=== PATIENT | female | born 1935 | race Caucasian/White ===

== ENCOUNTER 2019-12-26 00:49 | Day surgery (SDC) | payer OTHER, SELFPAY ==
[2019-12-01 12:51] VITALS: BP 154/75; PULSE 60; RESP 18; TEMP 36.6; O2SAT 97; BMI 27.3
[2019-12-26] VITALS (16 sets, daily range): BP systolic 124–193; BP diastolic 46–73; PULSE 62–81; RESP 16–20; TEMP 34.7–37; O2SAT 95–100; BMI 27.1
--- NOTE | ~2019-12-26 | XR_ITS ---
EXAMINATION: XR knee RT 2V DATE: 12/26/2019 13:08 INDICATION: Right knee arthroplasty. Postop. TECHNIQUE: 2 views of right knee were obtained. COMPARISON: Right knee radiographs 09/01/2019 FINDINGS: There is a total right knee arthroplasty in near-anatomic alignment with patellar resurfaci ng. No fracture. There is gas in the knee joint and soft tissues, consistent with recent surgery. IMPRESSION: 1. Total right knee arthroplasty in near-anatomic alignment. Reviewed, dictated and finalized at location A. TRONIC MACHINE OPERATOR
[2019-12-26] MEDS: LACTATED RINGERS 1,000 ML 30 ML IV CONT ×2 (08:25→12:53)
--- NOTE | 2019-12-26 09:05 | P.PNAN_ITS ---
Anes - Initial Pre Proc Eval Procedure: Operation Date: 12/26/19 10:00 Proposed Procedures p Right Total Knee Arthroplasty - Jimmy Oropeza MD Date/Time: 12/26/19 09:05 Surgeon: Jimmy Oropeza MD Pre Op Diagnosis: OA Right Knee Patient Data Age: 84 Gender: F Height: 1.5 m Weight: 60.8 kg Last Vital Signs Temp 36.6 C 12/26/19 08:39 Pulse 62 12/26/19 08:39 Resp 16 12/26/19 08:39 BP 158/62 H 12/26/19 08:39 Pulse Ox 100 12/26/19 08:39 Allergies Allergy/AdvReac Type Severity Reaction Status Date / Time No Known Allergies Allergy Unverified 12/26/19 08:00 Home Medications Medication Instructions Recorded Confirmed Type aspirin 81 mg PO DAILY 12/01/19 12/26/19 History atorvastatin 80 mg PO HS 12/01/19 12/26/19 History carvedilol 3.125 mg PO BID 12/01/19 12/26/19 History losartan-hydrochlorothiazide 1 tablet PO DAILY 12/01/19 12/26/19 History vitamin B complex [B 1 tablet PO DAILY 12/01/19 12/26/19 History Complex-Vitamin B12] Other Studies: echo 09/2019 - ef 65%, nl lvsf, impaired lv relaxation - estimated PA pressure 25 mmHg stress test 10/2019 - normal, no evidence of ischemia or scar, ef 68% Patient hx anesthesia problems: none Family hx anesthesia problems: none [facility] Past Medical History Medical History (Updated 12/26/19 @ 09:12 by Andrae James MD) Arthritis CAD (coronary artery disease) LAD stent Hypercholesterolemia Hypertension ICD (implantable cardioverter-defibrillator) in place Ischemic cardiomyopathy LBBB (left bundle branch block) Mitral regurgitation Pacemaker . BATTERY CHANGE EVER 4 YRS. SEES Surgical History Surgical History (Updated 12/26/19 @ 09:12 by Andrae James MD) History of cholecystectomy History of coronary artery stent placement Status post biventricular cardiac pacemaker insertion Social History Social History Smoking status: Never smoker Second hand tobacco smoke exposure: No Alcohol intake: never Gender identity (if verbalized by the patient): Female Anes - Eval Final PreProcedure Day of Procedure 12/26/19 09:05 Patient weight: overweight Heart: regular rate and rhythm Lungs: clear to auscultation and normal air movement Airway: Mallampati scale class II Neurological: alert and oriented Last oral intake: >/= 8 hours ASA classification: III Emergent: no Anesthetic plan: proceed Anesthesia type and monitoring: general LMA Informed Consent: The patient's anesthetic plan and its attendant risks and benefits were discussed with the patient/family/POA. Questions were solicited and answers provided to the satisfaction of the patient/family/POA.
--- NOTE | 2019-12-26 09:24 | WPDHPUPDATE1 ---
History and Physical Update Update Date/Time: 12/26/19 09:24 History and Physical has been reviewed, including an updated exam of the patient. There are NO changes in the patient's condition. Risks, benefits, and alternatives have been discussed and questions answered. Patient agrees to proceed with procedure.
--- NOTE | 2019-12-26 09:34 | WPDANESPNB ---
Anes - Peripheral Nerve Block Date/Time: 12/26/19 09:34 I have discussed with the patient/family/POA the placement of a peripheral nerve block for post-operative pain management, including associated risks, benefits, complications, and side effects. Alternative methods of post-operative analgesia were detailed. Questions were solicited and answers provided to the satisfaction of the patient/family/POA. Time-Out: A pre-procedural Time-Out was completed immediately before starting the procedure and confirmed: Patient Identification, Site, Procedure, Patient Position and the Availability of Requisite Equipment. Clinical Indications: Acute post-operative pain management requested by the operative surgeon. Nerve Block Insertion Note Anes-nerve block: adductor canal right Patient position: supine Skin prep: chlorhexidine Needle: 22 gauge, stimulating, insulated echogenic needle. Needle length: 80 mm Technique: ultrasound Technique comment: in plane Injectate: bupivacaine 0.5% with epi 5 mcg/ml (25cc) Observations: tolerated well Complications: none Procedure start time:: 925 Procedure end time:: 930
[2019-12-26] MEDS: ceFAZolin 2 GM/D5W 50 ML 2 GM/50 ML BAG IVPB (10:06)
[2019-12-26] MEDS: GENTAMICIN BONE CEMENT REFOBACIN 1 EACH TOPICAL (11:46)
--- NOTE | 2019-12-26 13:05 | PM.PROC ---
Procedure Note - Detailed Date of procedure: 12/26/19 Pre-op diagnosis: OA Right Knee Post-op diagnosis: same Procedure performed: Total knee arthroplasty Implants: [place] Triathlon knee system, Anderson base plate cemented tibia size 3, Posterior cruciate stabilized cemented femoral component size 3 ,and an 11 mm TS total stabilized polyethylene insert. 32mm polyethylene patella component. 50mm, 12mm diameter tibia stem extension. Anesthesia: GETA and regional (subsartorial nerve block) Surgeon: Jimmy Oropeza MD Estimated blood loss (mL): 200 Drains: No Pathology: none sent Complications: None Condition: stable Disposition: PACU Findings: Severe valgus deformity. Bone quality fair. Required extensive lateral release. Moderate attenuation of the MCL. Minimal distal lateral resection. 4 degrees external rotation. OPERATIVE DETAILS: The patient was given a nerve block preoperatively, and then brought to the operating room. A general anesthetic was administered. The leg was prepped and draped in the usual sterile fashion. The limb was elevated and the tourniquet inflated to 300 mmHg during the exposure and cementation. A longitudinal incision was created along the medial border of the patella and patellar tendon, and a midvastus approach to the knee was performed. No significant medial release was taken. The knee was then flexed. The osteophytes were carefully removed. The intramedullary guide was placed in the femoral canal. The distal femoral resection was then taken with the oscillating saw. The collateral ligaments were carefully protected. The tibia was carefully exposed. The jig was applied, and the proximal tibia was resected according to the preoperative plan. The knee was balanced in extension. Extensive lateral release was required with pie crusting. The anterior cruciate, ligament and meniscal remnants were removed. The posterior cruciate ligament was sacrificed. The patella was measured. Patellar resection was carried out with the oscillating saw. The femur was sized and rotation assessed using a combination of gap balancing, posterior referencing, and the AP axis. The 4 in 1 cutting block, and the box cut guide were used to finish the femoral cuts after equal gaps were assured. The osteophytes were carefully removed from the back of the knee. The knee was copiously irrigated with antibiotic solution periodically throughout the procedure. The spacer block was used to confirm equal flexion and extension gaps. Further releases were performed as needed. The tibia was sized and broached. Central drilling for the short stem was performed. The bony surfaces were prepared for cementing with pulsatile lavage. The real tibia,femur, and patella were cemented. Excess cement was carefully removed. Patellar tracking was carefully assessed. No additional releases were required. The wound was closed with #1 Vicryl suture, #2 Quill suture, 0-Quill suture, and 2-0 Quill suture followed by Steri-Strips. A sterile bulky dressing was applied. Meticulous hemostasis was maintained throughout the procedure. The Aquamantis device was used for additional hemostasis. The pain relieving mixture was injected after the exposure. There were no complications. The patient was extubated and brought to the recovery room in stable condition after the application of sterile dressing with Kevin bandage.
--- NOTE | 2019-12-26 13:58 | SUR.PHASEI ---
1355 FAMILY UPDATED IN THE WAITING ROOM & SENT TO ROOM 322.
[2019-12-26] MEDS: hydrALAZINE HCL 20 MG/ML VIAL 10 MG IV PUSH (14:26)
--- NOTE | 2019-12-26 15:15 | ADMGEN ---
This patient, Cassie Gunn, was admitted to 3 Med Surg Room 322-02. Patient/family oriented to hospital policies and general routines including ID bracelet, bed and alarms, visiting hours, pain management, procedures, bathroom and other care routines, personal items, smoking policy, room service/diet, and visiting hours. Valuables list has been completed. Information on how to activate the Rapid Response Team has been discussed. Patient/Family are encouraged to report perceived risks to care and to ask questions if they do not understand what they are told or what they should do.
[2019-12-26] MEDS: SODIUM CHLORIDE 0.9% IV 1,000 ML 125 ML IV CONT (16:22)
[2019-12-26] MEDS: ASPIRIN 81 MG ENTERIC TABLET PO (18:06)
[2019-12-26] MEDS: MELOXICAM 7.5 MG TABLET PO (18:06)
[2019-12-26] MEDS: FAMOTIDINE 20 MG TABLET PO (20:32)
[2019-12-26] MEDS: ATORVASTATIN 40 MG TABLET 80 MG PO (20:32)
[2019-12-26] MEDS: carvediloL 3.125 MG TABLET PO (20:32)
[2019-12-26] MEDS: DOCUSATE SODIUM 100 MG CAPSULE PO (20:32)
[2019-12-27] VITALS: BP 130/49; PULSE 64; RESP 16; TEMP 36.4; O2SAT 98
[2019-12-27 06:00] VITALS: BP 139/53; PULSE 70; RESP 16; TEMP 36.5; O2SAT 96
[2019-12-27 06:32] LABS: Basophils Percent Auto 0.2 % (0.2-1.2); Hematocrit 38.4 % (37.0-47.0); Hemoglobin 12.7 g/dL (12.0-15.0); Immature Granulocyte Absolute 0.08 K/mm3 (0.00-0.031); Immature Granulocyte Percent A 0.5 % (0-0.5); Lymphocytes Absolute Auto 2.05 K/mm3 (0.9-3.2); Lymphocytes Percent Auto 12.3 % (18.3-44.2); Mean Corpuscular HGB Conc 33.1 g/dl (32-36); Mean Corpuscular Hemoglobin 28.2 pg (26-34); Mean Corpuscular Volume 85.1 fl (80-100); Mean Platelet Volume 12.2 fl (7.4-10.4); Monocytes Absolute Auto 1.9 K/mm3 (0.1-0.6); Monocytes Percent Auto 11.6 % (2.6-8.5); Neutrophils Absolute Auto 12.6 K/mm3 (1.3-6.7); Neutrophils Percent Auto 75.4 % (45.5-73.1); Platelet Count Result 139 k/mm3 (150-375); Red Blood Count 4.51 M/mm3 (4.2-5.4); Red Cell Distribution Width 13.7 % (11.5-14.5); White Blood Count 16.7 K/mm3 (4.5-10.0)
[2019-12-27 06:52] LABS: Blood Urea Nitrogen 18 mg/dL (7-17); Calcium 8.1 mg/dL (8.4-10.2); Carbon Dioxide 24 mmol/L (22-30); Chloride 103 mmol/L (98-107); Estimated Glomerular Filt Rate > 60; Glucose 107 mg/dL (65-105); Potassium 3.5 mmol/L (3.4-5.0); Sodium 135 mmol/L (137-145)
--- NOTE | 2019-12-27 07:41 | PM.IMCN ---
HPI Data of Consult Consult date: 12/27/19 Requesting Physician: Oliver Kimball MD Primary Care Provider: Bartolome Flynn DO Consult Narrative Narrative: Cassie Gunn is a 84 year old female [facility] Past Medical History Medical History (Updated 12/26/19 @ 09:12 by Andrae James MD) Arthritis CAD (coronary artery disease) LAD stent Hypercholesterolemia Hypertension ICD (implantable cardioverter-defibrillator) in place Ischemic cardiomyopathy LBBB (left bundle branch block) Mitral regurgitation Pacemaker . BATTERY CHANGE EVER 4 YRS. SEES Surgical History Surgical History (Updated 12/27/19 @ 07:46 by Joe Kimball MD) History of cholecystectomy History of coronary artery stent placement Hx of fracture of right hip Subcapital hip fx s/p hemiarthroplasty on 10/22/17 Status post biventricular cardiac pacemaker insertion Family History Family History (Updated 12/26/19 @ 15:20 by Saman Griffin RN) Daughter Hypertension Sibling Hypertension Daughter Hypertension Mother Diabetes mellitus Alzheimer's dementia Father Myocardial infarction Social History Social History Smoking status: Never smoker Second hand tobacco smoke exposure: Yes Alcohol intake: never Substance use type: does not use Gender identity (if verbalized by the patient): Female Spiritual care concerns: No Agree to blood products: Yes Meds Home Medications and Allergies Home Medications Medication Instructions Recorded Confirmed Type aspirin 81 mg PO DAILY 12/01/19 12/26/19 History atorvastatin 80 mg PO HS 12/01/19 12/26/19 History carvedilol 3.125 mg PO BID 12/01/19 12/26/19 History losartan-hydrochlorothiazide 1 tablet PO DAILY 12/01/19 12/26/19 History vitamin B complex [B 1 tablet PO DAILY 12/01/19 12/26/19 History Complex-Vitamin B12] Allergies Allergy/AdvReac Type Severity Reaction Status Date / Time No Known Allergies Allergy Unverified 12/26/19 08:00 Vital Signs Vital Signs - 24 hr 12/26/19 08:39 12/26/19 12:53 12/26/19 13:05 Temperature 97.8 F 98.4 F Pulse Rate 62 76 67 Respiratory Rate 16 16 20 Blood Pressure 158/62 H 172/62 H 164/68 H Pulse Oximetry 100 100 100 12/26/19 13:20 12/26/19 13:35 12/26/19 13:50 Temperature Pulse Rate 68 70 68 Respiratory Rate 20 16 18 Blood Pressure 161/68 H 179/65 H 175/68 H Pulse Oximetry 98 95 96 12/26/19 14:05 12/26/19 14:20 12/26/19 14:35 Temperature Pulse Rate 69 69 71 Respiratory Rate 20 20 20 Blood Pressure 179/68 H 193/73 H 154/66 H Pulse Oximetry 97 97 97 12/26/19 14:48 12/26/19 15:06 12/26/19 15:37 Temperature 98.6 F 97.8 F 97.8 F Pulse Rate 69 78 73 Respiratory Rate 20 16 18 Blood Pressure 144/63 H 145/58 H 148/46 H Pulse Oximetry 97 100 100 12/26/19 15:59 12/26/19 16:45 12/26/19 20:00 Temperature 94.4 F L 97.8 F 97.2 F L Pulse Rate 81 80 71 Respiratory Rate 16 16 16 Blood Pressure 165/64 H 151/60 H 124/55 L Pulse Oximetry 98 98 99 12/26/19 20:32 12/27/19 00:00 12/27/19 06:00 Temperature 97.6 F 97.7 F Pulse Rate 66 64 70 Respiratory Rate 16 16 Blood Pressure 130/49 L 139/53 L Pulse Oximetry 98 96 Results Labs CBC & Chem 7: 12/27/19 05:53 12/27/19 05:53 Labs: Short CBC 12/27/19 Range/Units 05:53 WBC 16.7 H (4.5-10.0) K/mm3 Hgb 12.7 (12.0-15.0) g/dL Hct 38.4 (37.0-47.0) % Plt Count 139 L (150-375) k/mm3 BMP 12/27/19 05:53 Sodium 135 L Potassium 3.5 Chloride 103 Carbon Dioxide 24 BUN 18 H Creatinine 0.60 L Glucose 107 H Calcium 8.1 L
[2019-12-27] MEDS: MELOXICAM 7.5 MG TABLET PO (08:54)
[2019-12-27] MEDS: DOCUSATE SODIUM 100 MG CAPSULE PO (08:54)
[2019-12-27] MEDS: ASPIRIN 81 MG ENTERIC TABLET PO (08:54)
[2019-12-27 08:55] VITALS: PULSE 70
[2019-12-27] MEDS: VITAMIN B COMPLEX CAPSULE 1 CAP PO (08:55)
[2019-12-27] MEDS: FAMOTIDINE 20 MG TABLET PO (08:55)
[2019-12-27] MEDS: LOSARTAN POTASSIUM 100 MG TABLET PO (08:55)
[2019-12-27] MEDS: hydroCHLOROthiazide 12.5 MG CAPSULE PO (08:55)
[2019-12-27] MEDS: carvediloL 3.125 MG TABLET PO (08:55)
[2019-12-27 10:00] VITALS: BP 146/63; PULSE 70; RESP 16; TEMP 37.4; O2SAT 98
--- NOTE | 2019-12-27 11:36 | P.PNAN_ITS ---
Anes - Prog Note Post-Op Date/Time: 12/27/19 11:36 Cardiovascular status: normal Respiratory status: normal Airway patency: baseline Mental status: baseline Post-Op hydration status: normal Vital Signs: Last Vital Signs Temp 37.4 C 12/27/19 10:00 Pulse 70 12/27/19 10:00 Resp 16 12/27/19 10:00 BP 146/63 H 12/27/19 10:00 Pulse Ox 98 12/27/19 10:00 I/O: Intake & Output 12/26/19 12/27/19 12/27/19 23:59 07:59 15:59 Intake Total 600 1700 690 Output Total 500 100 Balance 100 1600 690 Laboratory Tests 12/27/19 05:53 12/27/19 05:53 12/27/19 12/27/19 05:53 05:53 WBC 16.7 H RBC 4.51 Hgb 12.7 Hct 38.4 MCV 85.1 MCH 28.2 MCHC 33.1 RDW 13.7 Plt Count 139 L MPV 12.2 H Immature Gran % (Auto) 0.5 Neut % (Auto) 75.4 H Lymph % (Auto) 12.3 L [place] % (Auto) 11.6 H Eos % (Auto) 0.0 Baso % (Auto) 0.2 Lymph # (Auto) 2.05 [place] # (Auto) 1.9 H Eos # (Auto) 0.0 Baso # (Auto) 0.0 Abs Immat Gran (auto) 0.08 H Absolute Neuts (auto) 12.6 H Absolute Nucleated RBC 0.0 Nucleated RBC % 0.0 Sodium 135 L Potassium 3.5 Chloride 103 Carbon Dioxide 24 BUN 18 H Creatinine 0.60 L Estim Creat Clear Calc Not Reportable Estimated GFR > 60 Glucose 107 H Calcium 8.1 L Post-procedural complaints: none Patient Feedback: Patient satisfied with anesthetic care.
== END 2019-12-27 12:43 | disposition home or self-care (01) ==
LOC: ANHSURGERY 07:52 → ANH3MEDSUR 14:53
PROVIDERS: PCP Family Medicine; Visit Provider Orthopaedic Surgery
PROC: (CPT 27447; principal; 2019-12-26 10:00)
DX: M17.11 Unilateral primary osteoarthritis, right knee (principal); G89.18 Other acute postprocedural pain; I10 Essential (primary) hypertension; I25.5 Ischemic cardiomyopathy; I25.10 Atherosclerotic heart disease of native coronary artery without angina pectoris; E78.00 Pure hypercholesterolemia, unspecified; I44.7 Left bundle-branch block, unspecified; I34.0 Nonrheumatic mitral (valve) insufficiency; Z95.810 Presence of automatic (implantable) cardiac defibrillator; Z79.82 Long term (current) use of aspirin; Z95.5 Presence of coronary angioplasty implant and graft
CPT/HCPCS: 27447; 64447; 36415; 73560; 80048; 85025; 86850; 86900; 86901; 97110; 97116; 97161; 97165; A9270; C1713; C1776; J0131; J0171; J0360; J0690; J1885; J2250; J2270; J2405; J2704; J2795; J3010; J7030; J7120

== ENCOUNTER 2022-04-29 14:48 | Outpatient (CLI) | payer OTHER, SELFPAY ==
[2022-04-29 18:37] LABS: Basophils Percent Auto 0.5 % (0.2-1.2); Eosinophils Absolute Auto 0.3 K/mm3 (0-0.3); Eosinophils Percent Auto 4.1 % (0-4.4); Hematocrit 45.4 % (37.0-47.0); Hemoglobin 14.4 g/dL (12.0-15.0); Immature Granulocyte Absolute 0.02 K/mm3 (0.00-0.031); Immature Granulocyte Percent A 0.3 % (0-0.5); Lymphocytes Absolute Auto 2.21 K/mm3 (0.9-3.2); Lymphocytes Percent Auto 28.9 % (18.3-44.2); Mean Corpuscular HGB Conc 31.7 g/dl (32-36); Mean Corpuscular Hemoglobin 28.5 pg (26-34); Mean Corpuscular Volume 89.7 fl (80-100); Mean Platelet Volume 12.5 fl (7.4-10.4); Monocytes Absolute Auto 0.9 K/mm3 (0.1-0.6); Monocytes Percent Auto 11.1 % (2.6-8.5); Neutrophils Absolute Auto 4.2 K/mm3 (1.3-6.7); Neutrophils Percent Auto 55.1 % (45.5-73.1); Platelet Count Result 163 k/mm3 (150-375); Red Blood Count 5.06 M/mm3 (4.2-5.4); Red Cell Distribution Width 14.5 % (11.5-14.5); White Blood Count 7.7 K/mm3 (4.5-10.0)
[2022-04-29 19:44] LABS: Alanine Aminotransferase 54 U/L (6-35); Albumin Level 3.9 g/dL (3.5-5.1); Alkaline Phosphatase 118 U/L (38-126); Anion Gap 6 mmol/L (8-16); Aspartate Amino Transferase 49 U/L (14-36); Bilirubin,Total 1.2 mg/dL (0.2-1.3); Blood Urea Nitrogen 16 mg/dL (7-17); Calcium 8.7 mg/dL (8.4-10.2); Carbon Dioxide 26 mmol/L (22-30); Chloride 106 mmol/L (98-107); Cholesterol 136 mg/dL (0-200); Estimated Glomerular Filt Rate > 60; Glucose 108 mg/dL (65-110); HDL Direct 61 mg/dL; Potassium 4.2 mmol/L (3.4-5.0); Sodium 138 mmol/L (137-145); Triglycerides 64 mg/dL (<150)
[2022-04-29 19:55] LABS: LDL Cholesterol Direct 54 mg/dL
== END 2022-04-29 14:49 | disposition home or self-care (01) ==
PROVIDERS: PCP Family Medicine; Visit Provider Family Medicine
DX: E78.00 Pure hypercholesterolemia, unspecified (principal); I25.10 Atherosclerotic heart disease of native coronary artery without angina pectoris; I10 Essential (primary) hypertension; Z95.0 Presence of cardiac pacemaker
CPT/HCPCS: 36415; 80053; 80061; 85025

== ENCOUNTER → 2022-06-09 10:35 | Outpatient (CLI) | payer OTHER, SELFPAY ==
--- NOTE | ~2022-06-09 | US_ITS ---
EXAMINATION: US renal BI DATE: 06/09/2022 10:59 INDICATION: I10 - Essential (primary) hypertension TECHNIQUE: Multiple grayscale and Doppler ultrasound images of the kidneys were obtained. COMPARISON: None available FINDINGS: The right kidney measures 9.5 x 4.6 x 4 cm. The left kidney measures 7.8 x 5 x 3.5 cm. The kidneys de monstrate normal parenchymal echogenicity.No sonographic evidence of nephrolithiasis. Simple right up per and mid pole cysts, no suspicious mass. No hydronephrosis. IMPRESSION: 1. Normal renal sonogram findings. Reviewed, dictated and finalized at location K.
== END ==
PROVIDERS: PCP Family Medicine; Visit Provider Family Medicine
DX: I10 Essential (primary) hypertension (principal)
CPT/HCPCS: 76775

== ENCOUNTER 2022-08-19 11:20 | Outpatient (CLI) | payer OTHER, SELFPAY ==
[2022-08-19 18:52] LABS: Alanine Aminotransferase 46 U/L (6-35); Alkaline Phosphatase 138 U/L (38-126); Anion Gap 12 mmol/L (8-16); Aspartate Amino Transferase 79 U/L (14-36); Bilirubin,Total 0.6 mg/dL (0.2-1.3); Blood Urea Nitrogen 25 mg/dL (7-17); Calcium 8.7 mg/dL (8.4-10.2); Carbon Dioxide 28 mmol/L (22-30); Chloride 99 mmol/L (98-107); Estimated Glomerular Filt Rate > 60; Glucose 123 mg/dL (65-110); Potassium 3.9 mmol/L (3.4-5.0); Sodium 139 mmol/L (137-145)
[2022-08-19 19:33] LABS: Hepatitis B Surface Antigen Negative (Negative)
[2022-08-19 19:39] LABS: HAV RESULT Negative (Negative); Hepatitis B Core IgM Result Negative (Negative)
[2022-08-19 19:51] LABS: Hepatitis C Virus Antibody Negative (Negative)
[2022-08-25 20:51] LABS: Parathyroid Hormone Related Pr 11 pg/mL (11-20)
[2022-08-28 13:58] LABS: PRA 3.19 ng/mL/h (0.25-5.82)
== END 2022-08-19 11:21 | disposition home or self-care (01) ==
PROVIDERS: PCP Family Medicine; Visit Provider Family Medicine
DX: R74.01 Elevation of levels of liver transaminase levels (principal); I16.0 Hypertensive urgency; I10 Essential (primary) hypertension; R74.8 Abnormal levels of other serum enzymes
CPT/HCPCS: 36415; 80048; 80074; 80076; 82088; 83519; 84244; 84443

== ENCOUNTER 2022-09-11 08:27 | Outpatient (CLI) | payer OTHER, SELFPAY ==
--- NOTE | ~2022-09-11 | US_ITS ---
US abdomen limited INDICATION: Abnormal lab test PROCEDURE: Realtime right upper abdominal ultrasound. COMPARISON: No prior studies for comparison. FINDINGS: The pancreas is normal without focal mass or pancreatic ductal dilation. Liver echotexture is normal without focal mass or intrahepatic biliary dilatation. There is normal directional flow i n the portal vein. Gallbladder is surgically absent. Common bile duct measures 4 mm. No sonographic Baxter's sign. Inc idental note is made of a right renal cyst measuring 2.2 cm. IMPRESSION: 1: Right renal cyst measuring 2.2 cm. Reviewed, dictated and finalized at location A.
== END 2022-09-11 08:28 | disposition home or self-care (01) ==
PROVIDERS: PCP Family Medicine; Visit Provider Family Medicine
DX: R74.8 Abnormal levels of other serum enzymes (principal); N28.1 Cyst of kidney, acquired
CPT/HCPCS: 76705

== ENCOUNTER 2022-09-13 17:13 | Emergency (ER) | payer OTHER, SELFPAY ==
--- NOTE | ~2022-09-13 | CT_ITS ---
EXAMINATION: CT cervical spine wo con DATE: 09/13/2022 18:09 INDICATION: Head injury TECHNIQUE: Computed tomography (CT) of the cervical spine was performed without intravenous contrast. The dose-length product (DLP) was 101.36 mGy-cm. Automated exposure control and iterative reconstruc tion technique were employed. COMPARISON: None FINDINGS: There are 2 mm of anterolisthesis of C4 on C5. There is no fracture. The vertebral body hei ghts are maintained. There is severe loss of intervertebral disc space height at C5-6 and C6-7. There is severe multilevel facet and uncovertebral joint osteoarthritis. IMPRESSION: 1. Severe cervical spondylosis without acute findings. Reviewed, dictated and finalized at location F.
--- NOTE | ~2022-09-13 | CT_ITS ---
EXAMINATION: CT brain wo con INDICATION: Head injury COMPARISON: None TECHNIQUE: Standard unenhanced head CT. The dose-length product (DLP) was 529.67 mGy-cm. The mA was a djusted according to patient size. Iterative reconstruction technique was employed. FINDINGS: There is left periorbital soft tissue swelling and laceration. There is no acute intraparen chymal hemorrhage. No evidence of mass lesion. No evidence of acute infarction. There is mild periven tricular and subcortical hypodensity probably related to small vessel ischemic disease. There is mild prominence of the sulci and ventricles related to cerebral atrophy. Intracranial calcified cerebral atherosclerosis is noted. There are no extra-axial collections. There is no mass effect or midline sh ift. Changes in the globes are likely from ocular lens surgery. There is mild mucosal thickening of t he paranasal sinuses. IMPRESSION: 1. Left periorbital soft tissue swelling without acute intracranial abnormality. 2. Age related findings. Reviewed, dictated and finalized at location F. IMPRESSION: 1. Left periorbital soft tissue swelling without acute intracranial abnormality . 2. Age related findings.
--- NOTE | 2022-09-13 17:15 | ECG_ITS ---
Measurements Intervals [place] Rate: 63 P: 71 [place]: 158 QRS: 29 QRSD: 126 T: 111 QT: 417 QTc: 427 Interpretive Statements ELECTRONIC VENTRICULAR PACEMAKER ABNORMAL RHYTHM ECG NO PREVIOUS ECG AVAILABLE FOR COMPARISON Electronically Signed On 09-13-2022 19:50:58 CDT by Yessica Woody M.D.
[2022-09-13 17:31] VITALS: BP 108/77; PULSE 64; RESP 20; TEMP 36.7; O2SAT 98
[2022-09-13 17:32] LABS: Basophils Absolute Auto 0.1 K/mm3 (0.0-0.1); Basophils Percent Auto 0.6 % (0.2-1.2); Eosinophils Absolute Auto 0.1 K/mm3 (0-0.3); Eosinophils Percent Auto 1.6 % (0-4.4); Hematocrit 40.7 % (37.0-47.0); Hemoglobin 13.4 g/dL (12.0-15.0); Immature Granulocyte Absolute 0.03 K/mm3 (0.00-0.031); Immature Granulocyte Percent A 0.3 % (0-0.5); Lymphocytes Absolute Auto 2.45 K/mm3 (0.9-3.2); Lymphocytes Percent Auto 27.3 % (18.3-44.2); Mean Corpuscular HGB Conc 32.9 g/dl (32-36); Mean Corpuscular Hemoglobin 29.8 pg (26-34); Mean Corpuscular Volume 90.4 fl (80-100); Mean Platelet Volume 11.1 fl (7.4-10.4); Monocytes Percent Auto 11.2 % (2.6-8.5); Neutrophils Absolute Auto 5.3 K/mm3 (1.3-6.7); Platelet Count Result 171 k/mm3 (150-375); Red Cell Distribution Width 13.9 % (11.5-14.5)
[2022-09-13 17:41] LABS: Alanine Aminotransferase 45 U/L (6-35); Albumin Level 4.1 g/dL (3.5-5.1); Alkaline Phosphatase 97 U/L (38-126); Anion Gap 10 mmol/L (8-16); Aspartate Amino Transferase 46 U/L (14-36); Bilirubin,Total 1.4 mg/dL (0.2-1.3); Blood Urea Nitrogen 26 mg/dL (7-17); Calcium 9.2 mg/dL (8.4-10.2); Carbon Dioxide 26 mmol/L (22-30); Chloride 99 mmol/L (98-107); Estimated Glomerular Filt Rate 47; Glucose 132 mg/dL (65-110); Potassium 4.2 mmol/L (3.4-5.0); Sodium 135 mmol/L (137-145)
[2022-09-13] MEDS: TETANUS,DIPHTHERIA,AC PERTUSSIS ADULT (0.5 ML) BOOSTRIX IM (18:17)
[2022-09-13 18:20] VITALS: BP 156/66; PULSE 71; RESP 18; TEMP 37; O2SAT 96
[2022-09-13 18:43] VITALS: BP 149/51; BP 158/61; BP 167/86; PULSE 63; PULSE 69; PULSE 80
[2022-09-13 18:57] VITALS: BP 167/86; PULSE 69; RESP 18; O2SAT 98
--- NOTE | 2022-09-13 18:57 | ED.FALL ---
HPI - Fall General Chief Complaint: Fall Stated Complaint: Fall LOC Time Seen by Provider: 09/13/22 17:51 History of Present Illness HPI Narrative: Patient states that she had an episode of loss of consciousness, she had been standing and then felt dizzy and lightheaded and then passed out, then woke up on the ground, thankfully there had been bystanders around her able to help her, she has not been down for very long. She has been eating and drinking normally, denies any recent fevers, cough or difficulty or pain urinating, no nausea or vomiting or abdominal pain, no chest pain or difficulty breathing. She did recently double her blood pressure medicine dosage per her physician's request due to uncontrolled hypertension. Related Data Home Medications Medication Instructions Recorded Confirmed aspirin 81 mg chewable tablet 81 mg PO DAILY 12/01/19 07/23/20 atorvastatin 80 mg tablet 80 mg PO HS 12/01/19 07/23/20 vitamin B complex (B 1 tablet PO DAILY 12/01/19 07/23/20 Complex-Vitamin B12 tablet) Allergies Allergy/AdvReac Type Severity Reaction Status Date / Time No Known Allergies Allergy Unverified 08/19/22 10:59 Review of Systems Review of Systems: CONST: No fever. HEENT: No sore throat C/V: No chest pain RESP: No cough GI: No abdominal pain/nausea/vomiting : No dysuria. M/S: No joint pain. SKIN: No rash. NEURO: Dizziness and LOC PSYCH: [No depression] [facility] Past Medical History Medical History Arthritis CAD (coronary artery disease) LAD stent Hypercholesterolemia Hypertension ICD (implantable cardioverter-defibrillator) in place Ischemic cardiomyopathy LBBB (left bundle branch block) Mitral regurgitation Pacemaker . BATTERY CHANGE EVER 4 YRS. SEES Surgical History Surgical History History of arthroplasty of right knee (~12/26/19) History of cholecystectomy History of coronary artery stent placement Hx of fracture of right hip Subcapital hip fx s/p hemiarthroplasty on 10/22/17 Status post biventricular cardiac pacemaker insertion Family History Family History Daughter Hypertension Sibling Hypertension Daughter Hypertension Mother Diabetes mellitus Alzheimer's dementia Father Myocardial infarction Social History Social History Smoking status: Former smoker Second hand tobacco smoke exposure: Yes Alcohol intake: never Substance use type: does not use Gender identity (if verbalized by the patient): Female Spiritual care concerns: No Agree to blood products: Yes Exam Narrative: EXAMINATION OF ORGAN SYSTEMS/BODY AREAS: Constitutional: Vital signs per nursing GENERAL:[No acute distress, non-toxic appearing.] HEAD: Small laceration to left forehead and cheek EYES: EOMI, conjunctiva normal ENT: Small lacerations of face as above LUNGS: Nonlabored breathing. HEART: [Regular rate and rhythm] ABD: [Soft], [nontender to palpation] EXT: Normal range of motion, no tenderness deformity anywhere SKIN: Tendon laceration to face as above NEURO: [Alert and oriented x 3. No gross focal sensory or strength deficits.] PSYCH: Normal affect Course Vital Signs Vital signs: Vital Signs Temperature 98.0 F 09/13/22 17:31 Pulse Rate 64 09/13/22 17:31 Respiratory Rate 20 09/13/22 17:31 Blood Pressure 108/77 09/13/22 17:31 Pulse Oximetry 98 09/13/22 17:31 Oxygen Delivery Room Air 09/13/22 17:31 Temperature 98.6 F 09/13/22 18:20 Pulse Rate 65 09/13/22 19:41 Respiratory Rate 16 09/13/22 19:41 Blood Pressure 153/74 H 09/13/22 19:41 Pulse Oximetry 99 09/13/22 19:41 Oxygen Delivery Room Air 09/13/22 18:20 MDM - Fall MDM Narrative Medical decision making narrative: 87-year-old female presenting after syncope and fall w
[2022-09-13 19:41] VITALS: BP 153/74; PULSE 65; RESP 16; O2SAT 99
== END 2022-09-13 19:42 | disposition home or self-care (01) ==
PROVIDERS: Emergency Medicine; Emergency Provider Emergency Medicine; PCP Family Medicine
DX: R55 Syncope and collapse (principal); S01.112A Laceration without foreign body of left eyelid and periocular area, initial encounter; Z23 Encounter for immunization; I25.10 Atherosclerotic heart disease of native coronary artery without angina pectoris; M19.90 Unspecified osteoarthritis, unspecified site; I10 Essential (primary) hypertension; I25.5 Ischemic cardiomyopathy; Z95.810 Presence of automatic (implantable) cardiac defibrillator; Z95.5 Presence of coronary angioplasty implant and graft; Z96.651 Presence of right artificial knee joint; Z96.641 Presence of right artificial hip joint; Z87.891 Personal history of nicotine dependence; Z79.82 Long term (current) use of aspirin; W18.39XA Other fall on same level, initial encounter
CPT/HCPCS: 12011; 36415; 70450; 72125; 80053; 85025; 90471; 90715; 93005; 99284

== ENCOUNTER 2022-12-02 13:42 | Outpatient (CLI) | payer OTHER, SELFPAY ==
[2022-12-02 18:12] LABS: Alanine Aminotransferase 52 U/L (6-35); Albumin Level 3.9 g/dL (3.5-5.1); Alkaline Phosphatase 99 U/L (38-126); Aspartate Amino Transferase 51 U/L (14-36); Bilirubin,Total 0.8 mg/dL (0.2-1.3)
[2022-12-02 21:48] LABS: Hemoglobin A1C 5.7 % (<5.7)
== END 2022-12-02 13:43 | disposition home or self-care (01) ==
LOC: ANHBWCLAB 13:43
PROVIDERS: PCP Family Medicine; Visit Provider Family Medicine
DX: R73.03 Prediabetes (principal); R74.01 Elevation of levels of liver transaminase levels
CPT/HCPCS: 36415; 80076; 83036

== ENCOUNTER 2023-03-08 10:38 | Outpatient (CLI) | payer OTHER, SELFPAY ==
[2023-03-08 19:01] LABS: Basophils Percent Auto 0.5 % (0.2-1.2); Eosinophils Absolute Auto 0.2 K/mm3 (0-0.3); Eosinophils Percent Auto 2.7 % (0-4.4); Hematocrit 45.3 % (37.0-47.0); Hemoglobin 14.6 g/dL (12.0-15.0); Immature Granulocyte Absolute 0.03 K/mm3 (0.00-0.031); Immature Granulocyte Percent A 0.4 % (0-0.5); Lymphocytes Percent Auto 28.5 % (18.3-44.2); Mean Corpuscular HGB Conc 32.2 g/dl (32-36); Mean Corpuscular Hemoglobin 29.1 pg (26-34); Mean Corpuscular Volume 90.4 fl (80-100); Mean Platelet Volume 11.8 fl (7.4-10.4); Monocytes Absolute Auto 0.8 K/mm3 (0.1-0.6); Monocytes Percent Auto 10.2 % (2.6-8.5); Neutrophils Absolute Auto 4.5 K/mm3 (1.3-6.7); Neutrophils Percent Auto 57.7 % (45.5-73.1); Platelet Count Result 197 k/mm3 (150-375); Red Blood Count 5.01 M/mm3 (4.2-5.4); Red Cell Distribution Width 14.8 % (11.5-14.5); White Blood Count 7.7 K/mm3 (4.5-10.0)
[2023-03-08 20:24] LABS: Alanine Aminotransferase 44 U/L (6-35); Albumin Level 4.4 g/dL (3.5-5.1); Alkaline Phosphatase 112 U/L (38-126); Anion Gap 5 mmol/L (8-16); Aspartate Amino Transferase 72 U/L (14-36); Bilirubin,Total 1.2 mg/dL (0.2-1.3); Blood Urea Nitrogen 18 mg/dL (7-17); Calcium 9.8 mg/dL (8.4-10.2); Carbon Dioxide 32 mmol/L (22-30); Chloride 102 mmol/L (98-107); Estimated Glomerular Filt Rate > 60; Glucose 117 mg/dL (65-110); Potassium 4.1 mmol/L (3.4-5.0); Sodium 139 mmol/L (137-145)
[2023-03-08 21:29] LABS: Hemoglobin A1C 5.5 % (<5.7)
== END 2023-03-08 10:39 | disposition home or self-care (01) ==
PROVIDERS: PCP Family Medicine; Visit Provider Family Medicine
DX: I10 Essential (primary) hypertension (principal); I25.10 Atherosclerotic heart disease of native coronary artery without angina pectoris; R73.03 Prediabetes; R74.8 Abnormal levels of other serum enzymes
CPT/HCPCS: 36415; 80053; 83036; 85025

== ENCOUNTER 2023-11-01 14:37 | Outpatient (CLI) | payer OTHER, SELFPAY ==
[2023-11-01 18:52] LABS: Hematocrit 45.2 % (37.0-47.0); Hemoglobin 14.2 g/dL (12.0-15.0); Mean Corpuscular HGB Conc 31.4 g/dl (32-36); Mean Corpuscular Hemoglobin 28.4 pg (26-34); Mean Corpuscular Volume 90.4 fl (80-100); Mean Platelet Volume 12.4 fl (7.4-10.4); Platelet Count Result 159 k/mm3 (150-375); Red Cell Distribution Width 13.6 % (11.5-14.5); White Blood Count 7.6 K/mm3 (4.5-10.0)
[2023-11-01 20:09] LABS: Alanine Aminotransferase 53 U/L (6-35); Albumin Level 4.3 g/dL (3.5-5.1); Alkaline Phosphatase 131 U/L (38-126); Anion Gap 5 mmol/L (8-16); Aspartate Amino Transferase 63 U/L (14-36); Bilirubin,Total 1.4 mg/dL (0.2-1.3); Blood Urea Nitrogen 13 mg/dL (7-17); Calcium 9.3 mg/dL (8.4-10.2); Carbon Dioxide 31 mmol/L (22-30); Chloride 105 mmol/L (98-107); Estimated Glomerular Filt Rate > 60; Glucose 103 mg/dL (65-110); Potassium 4.1 mmol/L (3.4-5.0); Sodium 141 mmol/L (137-145)
[2023-11-01 21:07] LABS: Hemoglobin A1C 5.7 % (<5.7)
== END 2023-11-01 14:38 | disposition home or self-care (01) ==
PROVIDERS: PCP Family Medicine; Visit Provider Family Medicine
DX: R73.03 Prediabetes (principal); I16.0 Hypertensive urgency; I10 Essential (primary) hypertension; I25.10 Atherosclerotic heart disease of native coronary artery without angina pectoris; R74.8 Abnormal levels of other serum enzymes; Z95.0 Presence of cardiac pacemaker
CPT/HCPCS: 36415; 80053; 83036; 85027

== ENCOUNTER 2024-05-08 14:31 | Outpatient (CLI) | payer OTHER, SELFPAY ==
[2024-05-08 18:59] LABS: Hematocrit 45.1 % (37.0-47.0); Hemoglobin 14.4 g/dL (12.0-15.0); Mean Corpuscular HGB Conc 31.9 g/dl (32-36); Mean Corpuscular Hemoglobin 28.6 pg (26-34); Mean Corpuscular Volume 89.7 fl (80-100); Mean Platelet Volume 12.7 fl (7.4-10.4); Platelet Count Result 151 k/mm3 (150-375); Red Blood Count 5.03 M/mm3 (4.2-5.4); Red Cell Distribution Width 14.3 % (11.5-14.5); White Blood Count 7.7 K/mm3 (4.5-10.0)
[2024-05-08 22:27] LABS: Vitamin D 25 Hydroxy 21.6 ng/mL
[2024-05-08 22:40] LABS: Hemoglobin A1C 5.6 % (<5.7)
[2024-05-08 23:26] LABS: Alanine Aminotransferase 58 U/L (6-35); Alkaline Phosphatase 108 U/L (38-126); Anion Gap 7 mmol/L (4-12); Aspartate Amino Transferase 85 U/L (14-36); Bilirubin,Total 1.5 mg/dL (0.2-1.3); Blood Urea Nitrogen 18 mg/dL (7-17); Calcium 9.2 mg/dL (8.4-10.2); Carbon Dioxide 27 mmol/L (22-30); Chloride 110 mmol/L (98-107); Estimated Glomerular Filt Rate > 60; Glucose 101 mg/dL (65-110); Potassium 4.1 mmol/L (3.4-5.0); Sodium 144 mmol/L (137-145)
== END 2024-05-08 14:32 | disposition home or self-care (01) ==
PROVIDERS: PCP Family Medicine; Visit Provider Family Medicine
DX: K21.9 Gastro-esophageal reflux disease without esophagitis (principal); I10 Essential (primary) hypertension; I25.10 Atherosclerotic heart disease of native coronary artery without angina pectoris; Z00.00 Encounter for general adult medical examination without abnormal findings; Z95.810 Presence of automatic (implantable) cardiac defibrillator; R73.03 Prediabetes; Z79.899 Other long term (current) drug therapy; E55.9 Vitamin D deficiency, unspecified
CPT/HCPCS: 36415; 80053; 82306; 82607; 83036; 85027

== ENCOUNTER 2024-07-10 09:59 | Outpatient (CLI) | payer OTHER, SELFPAY ==
--- NOTE | 2024-07-10 10:17 | ECG_ITS ---
Test Date: 2024-07-10 10:31:36 Measurements Intervals [place] Rate: 62 P: 83 [place]: 124 QRS: 25 QRSD: 153 T: 76 QT: 481 QTc: 490 Interpretive Statements ELECTRONIC VENTRICULAR PACEMAKER ATYPICAL ECG No previous ECG available for comparison Electronically Signed On 07-10-2024 11:03:23 CDT by Sonido Palacios M.D.
== END 2024-07-10 10:00 | disposition home or self-care (01) ==
PROVIDERS: PCP Family Medicine; Visit Provider Otolaryngology
DX: I25.10 Atherosclerotic heart disease of native coronary artery without angina pectoris (principal); Z01.818 Encounter for other preprocedural examination
CPT/HCPCS: 93005

== ENCOUNTER 2024-07-11 02:30 | Day surgery (SDC) | payer OTHER, SELFPAY ==
[2024-07-06 13:05] VITALS: BMI 27.0
--- NOTE | 2024-07-06 13:38 | PC.NURSE ---
Report to the Outpatient Waiting Room, entrance under the green pavilion located off [facility], at time __10:30am on date __07/11/24 . Planned Procedure Time: 12:30pm___. Time changes happen often and if your time is changed the preop area will call you the afternoon before. - You and your visitor will be asked to self-screen and do not enter if you have any COVID symptoms. - A mask is optional within the hospital at this time. Patients may have clear liquids (water, carbonated beverages, clear teas, apple juice) until 3 hours prior to surgery with a maximum of 20 ounces. - No food from midnight until time of surgery Take the following medications with a SIP of water the morning of surgery: __Amlodipine and Carvedilol DO NOT STOP ANY OF YOUR OTHER PRESCRIPTION MEDICATIONS PRIOR TO SURGERY ?EXCEPT THE FOLLOWING Medications to discontinue per physician ____All vitamins, probiotics, supplements 3 days prior per Anesthesia Date to take last dose 07/07/24 Please no make-up, nail maori, hairspray, perfume, deodorant, or body powder the day of surgery. No jewelry (including any body piercings) or valuables the day of surgery, leave them at home. Please take a shower or bath the night before, or the morning of, surgery with an antibacterial soap. Wear comfortable, loose fitting clothing. Children are encouraged to wear pajamas. - Jewelry must be removed prior to entering the operating room. Rings and piercings that are not removed may be cut off. - The hospital will not accept responsibility for valuables. - Please leave all valuables, including medications, at home the day of surgery. If you are going home after surgery, a licensed national dedicated truck driver must drive you home. - NO public transportation without another adult if you receive anesthesia. - We recommend that an adult stay with you for 24 hours following discharge. - We also recommend that you do not drive, make important decision, drink alcoholic beverages, or take any drugs that were not prescribed by your health care provider for at least 24 hours after your discharge time. Follow any additional instructions given to you from your surgeon. If you or anyone in your household have experienced Covid symptoms in the past week, please notify your surgeon or the nurse liaison at the phone number below for possible testing. Telephone instructions given to __patient and Daughter and asked if any additional questions and then verbalized understanding. Patient advised to call surgeon office or pre surgery nurse liaison [phone] if any additional questions.
--- NOTE | 2024-07-10 16:34 | PM.IMHP ---
H&P: HPI History of Present Illness Date/Time: 07/10/24 16:34 Chief Complaint: dysphagia pharyngeal cyst Narrative: planned surgical procedure Review of Systems Review of Systems: All systems reviewed & are unremarkable except as noted in HPI and below [facility] Past Medical History Medical History Arthritis CAD (coronary artery disease) LAD stent Hypercholesterolemia Hypertension ICD (implantable cardioverter-defibrillator) in place Ischemic cardiomyopathy LBBB (left bundle branch block) Mitral regurgitation Pacemaker . BATTERY CHANGE EVER 4 YRS. SEES Surgical History Surgical History History of arthroplasty of right knee (~12/26/19) History of cholecystectomy History of coronary artery stent placement Hx of fracture of right hip Subcapital hip fx s/p hemiarthroplasty on 10/22/17 Status post biventricular cardiac pacemaker insertion Family History Family History Daughter Hypertension Sibling Hypertension Daughter Hypertension Mother Diabetes mellitus Alzheimer's dementia Father Myocardial infarction Social History Social History Smoking status: Never smoker Second hand tobacco smoke exposure: Yes Additional smoking assessment comments: no form of nicotine use Alcohol intake: never Substance use type: does not use Lack of Transportation: No Lack of Food: Never True Current Housing: I Have Housing Concerned About Future Housing: No Difficulty Paying Gas/Electric Bills: No Difficulty Paying for Meds: No Currently Unemployed: No Education: Grade School Difficulty w/ Childcare or Family Care: No Living arrangements: with family Additional living arrangements comments: w Daughter Gender identity (if verbalized by the patient): Female Spiritual care concerns: No Agree to blood products: Yes Meds Home Medications and Allergies Home Medications Medication Instructions Recorded Confirmed Type aspirin 81 mg chewable tablet 81 mg PO DAILY 12/01/19 07/06/24 History atorvastatin 80 mg tablet 80 mg PO HS 12/01/19 07/06/24 History vitamin B complex (B 1 tablet PO DAILY 12/01/19 07/06/24 History Complex-Vitamin B12 tablet) amlodipine 10 mg tablet 10 mg PO DAILY #90 tabs 02/24/24 07/06/24 Rx carvedilol 12.5 mg tablet 12.5 mg PO Q12H #180 tabs 02/24/24 07/06/24 Rx cholecalciferol (vitamin D3) 1,250 1,250 mcg PO WEEKLY #14 tabs 05/09/24 07/06/24 Rx mcg (50,000 unit) tablet Allergies Allergy/AdvReac Type Severity Reaction Status Date / Time No Known Allergies Allergy Verified 07/06/24 12:56 Exam Narrative: pharyngeal cyst Assessment and Plan Assessment and plan (1) Pharyngeal cyst: Code(s): J39.2 - Other diseases of pharynx Status: Acute Assessment and Plan: plan or Microdirect laryngoscopy with excision of pharyngeal /left ear cyst. Will also need endoscope. Risks discussed bleeding infection damage to surrounding structures failure to wake up from surgery need further procedures failure to achieve diagnosis regardless if damage the dentition damage to jaw need for hospitalization. Postoperative infection bleeding. Damage to structure of the clavicles by myself damage to structure induction remains anesthesia including vocal cord paralysis. Patient voiced understanding and agreed. (2) Vallecular cyst: Code(s): J38.7 - Other diseases of larynx Status: Acute
[2024-07-11] VITALS (8 sets, daily range): BP systolic 159–189; BP diastolic 61–82; PULSE 60–69; RESP 16–20; TEMP 36.2–36.4; O2SAT 98–100; BMI 25.9
[2024-07-11] MEDS: LACTATED RINGERS 1,000 ML 30 ML IV CONT (11:15)
--- NOTE | 2024-07-11 12:09 | WPDANESEPPF ---
Anes - Initial Pre Proc Eval Procedure: Operation Date: 07/11/24 12:30 Proposed Procedures p Microdirect Laryngoscopy with Excision Pharyngeal Cyst - Isac Morales MD Date/Time: 07/11/24 12:09 Surgeon: Isac Morales MD Pre Op Diagnosis: Pharyngeal Cyst Patient Data Age: 89 Gender: F Height: 1.5 m Weight: 58.4 kg Last Vital Signs Temp 97.2 F L 07/11/24 10:10 Pulse 60 07/11/24 10:10 Resp 18 07/11/24 10:10 BP 165/70 H 07/11/24 10:10 Pulse Ox 100 07/11/24 10:10 O2 Del Method Room Air 07/11/24 10:10 Allergies Allergy/AdvReac Type Severity Reaction Status Date / Time No Known Allergies Allergy Verified 07/11/24 10:50 Home Medications Medication Instructions Recorded Confirmed Type aspirin 81 mg chewable tablet 81 mg PO DAILY 12/01/19 07/06/24 History atorvastatin 80 mg tablet 80 mg PO HS 12/01/19 07/06/24 History vitamin B complex (B 1 tablet PO DAILY 12/01/19 07/11/24 History Complex-Vitamin B12 tablet) amlodipine 10 mg tablet 10 mg PO DAILY #90 tabs 02/24/24 07/11/24 Rx carvedilol 12.5 mg tablet 12.5 mg PO Q12H #180 tabs 02/24/24 07/11/24 Rx cholecalciferol (vitamin D3) 1,250 1,250 mcg PO WEEKLY #14 tabs 05/09/24 07/11/24 Rx mcg (50,000 unit) tablet Patient hx anesthesia problems: none Family hx anesthesia problems: none Results Review: All pre-operative results and documents have been reviewed as part of the pre-operative evaluation. [facility] Past Medical History Medical History Arthritis CAD (coronary artery disease) LAD stent Hypercholesterolemia Hypertension ICD (implantable cardioverter-defibrillator) in place Ischemic cardiomyopathy LBBB (left bundle branch block) Mitral regurgitation Pacemaker . BATTERY CHANGE EVER 4 YRS. SEES Surgical History Surgical History History of arthroplasty of right knee (~12/26/19) History of cholecystectomy History of coronary artery stent placement Hx of fracture of right hip Subcapital hip fx s/p hemiarthroplasty on 10/22/17 Status post biventricular cardiac pacemaker insertion Family History Family History Daughter Hypertension Sibling Hypertension Daughter Hypertension Mother Diabetes mellitus Alzheimer's dementia Father Myocardial infarction Social History Social History Smoking status: Never smoker Second hand tobacco smoke exposure: Yes Additional smoking assessment comments: no form of nicotine use Alcohol intake: never Substance use type: does not use Lack of Transportation: No Lack of Food: Never True Current Housing: I Have Housing Concerned About Future Housing: No Difficulty Paying Gas/Electric Bills: No Difficulty Paying for Meds: No Currently Unemployed: No Education: Grade School Difficulty w/ Childcare or Family Care: No Living arrangements: with family Additional living arrangements comments: w Daughter Gender identity (if verbalized by the patient): Female Spiritual care concerns: No Agree to blood products: Yes Anes - Eval Final PreProcedure Day of Procedure 07/11/24 12:09 Patient weight: normal Heart: regular rate and rhythm Lungs: clear to auscultation and decreased breath sounds Airway: Mallampati scale class II and special considerations (Edentulous. ) Neurological: alert and oriented Last oral intake: >/= 8 hours ASA classification: III Emergent: no Anesthetic plan: proceed Anesthesia type and monitoring: general ETT and standard monitoring Results Review: All pre-operative results and documents have been reviewed as part of the pre-operative evaluation. ECHO 2019 w nml LVEF 65%, no , diastolic dysfunction. AICD and pacemaker in place. HTN, hyperlipidemia, Hx of CAD s/p PTCA w s
--- NOTE | 2024-07-11 12:27 | P.HP_ITS ---
History of Present Illness History of Present Illness Consent: Risks, benefits, and alternatives have been discussed and questions answered. Patient agrees to proceed with procedure. Chief complaint: Pharyngeal Cyst Narrative: Cassie Gunn is a 89 year old female [facility] Past Medical History Medical History Arthritis CAD (coronary artery disease) LAD stent Hypercholesterolemia Hypertension ICD (implantable cardioverter-defibrillator) in place Ischemic cardiomyopathy LBBB (left bundle branch block) Mitral regurgitation Pacemaker . BATTERY CHANGE EVER 4 YRS. SEES Surgical History Surgical History History of arthroplasty of right knee (~12/26/19) History of cholecystectomy History of coronary artery stent placement Hx of fracture of right hip Subcapital hip fx s/p hemiarthroplasty on 10/22/17 Status post biventricular cardiac pacemaker insertion Family History Family History Daughter Hypertension Sibling Hypertension Daughter Hypertension Mother Diabetes mellitus Alzheimer's dementia Father Myocardial infarction Social History Social History Smoking status: Never smoker Second hand tobacco smoke exposure: Yes Additional smoking assessment comments: no form of nicotine use Alcohol intake: never Substance use type: does not use Lack of Transportation: No Lack of Food: Never True Current Housing: I Have Housing Concerned About Future Housing: No Difficulty Paying Gas/Electric Bills: No Difficulty Paying for Meds: No Currently Unemployed: No Education: Grade School Difficulty w/ Childcare or Family Care: No Living arrangements: with family Additional living arrangements comments: w Daughter Gender identity (if verbalized by the patient): Female Spiritual care concerns: No Agree to blood products: Yes Meds Home Medications and Allergies Home Medications Medication Instructions Recorded Confirmed Type aspirin 81 mg chewable tablet 81 mg PO DAILY 12/01/19 07/06/24 History atorvastatin 80 mg tablet 80 mg PO HS 12/01/19 07/06/24 History vitamin B complex (B 1 tablet PO DAILY 12/01/19 07/11/24 History Complex-Vitamin B12 tablet) amlodipine 10 mg tablet 10 mg PO DAILY #90 tabs 02/24/24 07/11/24 Rx carvedilol 12.5 mg tablet 12.5 mg PO Q12H #180 tabs 02/24/24 07/11/24 Rx cholecalciferol (vitamin D3) 1,250 1,250 mcg PO WEEKLY #14 tabs 05/09/24 07/11/24 Rx mcg (50,000 unit) tablet Allergies Allergy/AdvReac Type Severity Reaction Status Date / Time No Known Allergies Allergy Verified 07/11/24 10:50 Vital Signs Vital Signs - 24 hr 07/11/24 10:10 Temperature 36.2 C L Pulse Rate 60 Respiratory Rate 18 Blood Pressure 165/70 H Pulse Oximetry 100 Oxygen Delivery Room Air
--- NOTE | 2024-07-11 12:35 | WPDHPUPDATE1 ---
History and Physical Update Update Date/Time: 07/11/24 12:35 History and Physical has been reviewed, including an updated exam of the patient. There are NO changes in the patient's condition. Risks, benefits, and alternatives have been discussed and questions answered. Patient agrees to proceed with procedure.
[2024-07-11] MEDS: OXYMETAZOLINE HCL 0.05% NAS 15 ML BTL (*BKC) 1 SPRAY XX (12:49)
--- NOTE | 2024-07-11 13:39 | P.OP_ITS ---
Procedure Note - Detailed Date of Procedure 07/11/24 Pre-op Diagnosis Pharyngeal Cyst Post-op Diagnosis Same Procedure Performed Direct laryngoscopy with excision/ marsupialization right-sided pharyngeal cyst Surgeon Isac Morales MD Anesthesia General Indications see above Findings large several cm right-sided pharyngeal cyst cotton based off the pharyngeal wall were joined the vallecula. No sinister appearing tissue all of the cyst wall was sent for pathology. Minimal bleeding. Patient tolerated the procedure well Description of Procedure patient identified consent verified preop. Patient brought operating. Time- out performed. General anesthesia induced endotracheal tube secured. Patient prepped draped position procedure confirmed. Bed rotated. Moist Ray-Ivonne placed over the upper gingiva. A Dedo laryngoscope utilized easy view of the pharyngeal cyst. Patient placed in suspension. Cyst wall completely removed more superior lysed all the fluid suctioned out pathology sent blood controlled by placing Afrin soaked pledgets on at x3 all remnant blood suctioned out Dedo laryngoscope so removed no active bleeding moist Ray-Ivonne removed. Total blood loss 1 cc. Patient tolerated procedure very well no complications. I performed all dictated portions of procedure. Of note there is a small left-sided tonsillar kind of inferior tonsillar basis but is nothing compared to the right. Patient tolerated everything well. Taken to PACU care the patient given Anesthesiology no complications. Estimated Blood Loss 1 Drains No Packing No Pathology Yes Complications No immediate complications Condition Stable Disposition PACU [facility] Billing Surgery - Charge Forward: Surgery Billing
[2024-07-11] MEDS: hydrALAZINE HCL 20 MG/ML VIAL 5 MG IV PUSH (14:35)
== END 2024-07-11 15:15 | disposition home or self-care (01) ==
PROVIDERS: PCP Family Medicine; Visit Provider Otolaryngology
PROC: 0CJS8ZZ Inspection of Larynx, Via Natural or Artificial Opening Endoscopic (ICD-10-PCS; CPT 31541; principal; 2024-07-11 12:30)
DX: J39.2 Other diseases of pharynx (principal); I10 Essential (primary) hypertension; E78.00 Pure hypercholesterolemia, unspecified; I25.10 Atherosclerotic heart disease of native coronary artery without angina pectoris; I25.5 Ischemic cardiomyopathy; I44.7 Left bundle-branch block, unspecified; I34.0 Nonrheumatic mitral (valve) insufficiency; Z79.82 Long term (current) use of aspirin; Z98.890 Other specified postprocedural states; Z90.49 Acquired absence of other specified parts of digestive tract; Z95.5 Presence of coronary angioplasty implant and graft; Z95.0 Presence of cardiac pacemaker; Z86.79 Personal history of other diseases of the circulatory system; Z82.49 Family history of ischemic heart disease and other diseases of the circulatory system
CPT/HCPCS: 31541; 88305; 93005; A9270; J0360; J1100; J2371; J2704; J3010; J7120

== ENCOUNTER 2025-07-03 08:51 | Outpatient (CLI) | payer OTHER, SELFPAY ==
[2025-07-03 09:48] LABS: Hematocrit 42.6 % (37.0-47.0); Hemoglobin 13.9 g/dL (12.0-15.0); Immature Granulocyte Percent A 0.3 % (0-0.5); Lymphocytes Absolute Auto 2.34 K/mm3 (0.9-3.2); Mean Corpuscular HGB Conc 32.6 g/dl (32-36); Mean Corpuscular Hemoglobin 28.9 pg (26-34); Mean Corpuscular Volume 88.6 fl (80-100); Nucleated Red Blood Cells Absolute Auto 0.000 K/mm3 (0.0-0.012); Nucleated Red Blood Cells Perc 0.0 % (0.0-0.2); Platelet Count Result 165 k/mm3 (150-375); Red Blood Count 4.81 M/mm3 (4.2-5.4); White Blood Count 6.6 K/mm3 (4.5-10.0)
[2025-07-03 10:13] LABS: Alanine Aminotransferase 56 U/L (6-35); Albumin Level 4.0 g/dL (3.5-5.1); Alkaline Phosphatase 138 U/L (38-126); Anion Gap 8 mmol/L (4-12); Aspartate Amino Transferase 55 U/L (14-36); Bilirubin,Total 1.1 mg/dL (0.2-1.3); Blood Urea Nitrogen 21 mg/dL (7-17); Calcium 9.1 mg/dL (8.4-10.2); Carbon Dioxide 24 mmol/L (22-30); Chloride 107 mmol/L (98-107); Estimated Glomerular Filt Rate > 60; Glucose 118 mg/dL (65-110); Potassium 4.3 mmol/L (3.4-5.0); Sodium 139 mmol/L (137-145); Total Protein 6.5 g/dL (6.3-8.2)
[2025-07-03 10:17] LABS: Hemoglobin A1C 6.0 % (<5.7)
[2025-07-03 11:13] LABS: Vitamin B12 676.0 pg/mL (239-931)
== END 2025-07-03 08:52 | disposition home or self-care (01) ==
PROVIDERS: PCP Family Medicine; Visit Provider Family Medicine
DX: R73.03 Prediabetes (principal); I10 Essential (primary) hypertension; I25.10 Atherosclerotic heart disease of native coronary artery without angina pectoris; Z95.0 Presence of cardiac pacemaker; Z00.00 Encounter for general adult medical examination without abnormal findings; Z79.899 Other long term (current) drug therapy
CPT/HCPCS: 36415; 80053; 82306; 82607; 83036; 85025